=== PATIENT | female | born 1930 | race Caucasian/White ===

== ENCOUNTER → 2016-06-08 | Outpatient (CLI) | payer MEDICARE, BC | END | disposition disaster alternative care site (69) | LOC: LGSMG 14:48 | DX: R30.0 Dysuria (principal) ==

== ENCOUNTER → 2016-08-05 | Outpatient (CLI) | payer MEDICARE, BC | END | disposition disaster alternative care site (69) | LOC: GRAD 10:28 | DX: M25.552 Pain in left hip (principal); M54.9 Dorsalgia, unspecified; M47.896 Other spondylosis, lumbar region; R29.6 Repeated falls; W19.XXXA Unspecified fall, initial encounter | CPT/HCPCS: A9503 ==

== ENCOUNTER 2016-09-04 16:19 | Emergency (ER) | payer MEDICARE, BC ==
--- NOTE | ~2016-09-04 | ER ---
PATIENT'S NAME: NEHAL CANTU [facility] AGE: 86 Y [address] ROOM: [place] [address] LOCATION: [facility] ADMIT DATE: 09/04/2016 ER/Outpatient Report DISCHARGE DATE: 09/04/2016 FAMILY PHYSICIAN: Yonny Whitaker MD ATTENDING PHYSICIAN: Ayah Caraballo TIME SEEN: 1630 hours. HISTORY OF PRESENT ILLNESS: The patient is an 86-year-old female who said that she was getting in her car here in the hospital parking lot when her left leg gave out causing her to fall backwards. She said she hit the back of her head against the concrete. However, she denies any loss of consciousness, denies any neck pain. Does complain of some pain in her left thigh, knee, and ankle. She does state that she has had a bad left leg for quite some time. PAST MEDICAL HISTORY: Allergies: See copied list. CURRENT MEDICATIONS: See her copied list. MEDICAL HISTORY: She has a history of hypothyroidism, insulin-dependent diabetes, hypertension, hyperlipidemia, and degenerative arthritis. SURGERIES: Appendectomy, cholecystectomy, and hysterectomy. SOCIAL HISTORY: She is . is present. Nonsmoker. Denies alcohol use. REVIEW OF SYSTEMS: GENERAL: No recent illness. HEAD: Complains of some sore areas in the back of her head. EYES, EARS, NOSE, THROAT: No visual changes, neck pain. RESPIRATORY: No shortness of breath, cough. CARDIOVASCULAR: No chest pain, no heart palpitations. MUSCULOSKELETAL: She does have pain in her left thigh, left knee, and left ankle. OBJECTIVE: VITAL SIGNS: Initial blood pressure was 214/81; however, it did go down to 179; respiratory rate was 20; pulse 76; her O2 saturation is 95%. PATIENT'S NAME: NEHAL CANTU [facility] AGE: 86 Y [address] ROOM: [place], [place] [address] LOCATION: [facility] ADMIT DATE: 09/04/2016 ER/Outpatient Report DISCHARGE DATE: 09/04/2016 FAMILY PHYSICIAN: Yonny Whitaker MD ATTENDING PHYSICIAN: Ayah Caraballo GENERAL APPEARANCE: She is alert, 86-year-old, well oriented. HEAD: She had some palpable tenderness bilaterally, occipital area. There is no central cervical spine tenderness. LUNGS: Sounded clear. HEART: Rhythm was regular. Tones were distant. Her initial systolic pressure was high. ABDOMEN: Soft, nontender. EXTREMITIES: Left thigh was slightly tender, but the patient had stated that it has been tender for quite some time. She also has some lateral ankle tenderness. LABORATORY DATA: CT scan of her head and neck were negative for any acute changes. Plain films of her pelvis, left hip, left knee, and left ankle showed no acute fractures or injuries. ASSESSMENT: 1. Ground-level fall. 2. Contusion, head, occipital area. 3. Pain, left knee and left ankle with negative x-rays. PLAN: Recommended to limit activity. Tylenol for pain. Possible ice. Follow up with her primary care if concerns. The patient and family verbalized understanding of our x-ray and CT findings. STEVE REN FOR MD CHARLEY SEGURA/preet /[id number] d: 09/05/16 0020 t: 09/08/16 0643, OUTPATIENT REPORT
== END 2016-09-04 17:29 | disposition disaster alternative care site (69) ==
LOC: GACC 16:19
DX: S00.03XA Contusion of scalp, initial encounter (principal); M25.572 Pain in left ankle and joints of left foot; M25.562 Pain in left knee; E11.9 Type 2 diabetes mellitus without complications; I10 Essential (primary) hypertension; E78.5 Hyperlipidemia, unspecified; E03.9 Hypothyroidism, unspecified; Z90.49 Acquired absence of other specified parts of digestive tract; Z90.710 Acquired absence of both cervix and uterus; W22.8XXA Striking against or struck by other objects, initial encounter; Z79.899 Other long term (current) drug therapy; Z79.4 Long term (current) use of insulin